=== PATIENT | male | born 1965 | race Caucasian/White ===

== ENCOUNTER 2018-02-13 14:39 | Outpatient (CLI) | payer OTHER ==
--- NOTE | 2018-02-13 15:33 | RAD ---
PA AND LATERAL OF THE CHEST: 02/13/18 INDICATION: History of cough. COMPARISON: None. FINDINGS: There is air space opacity in the left lower lobe with small left pleural effusion suspicious for pne umonia with a parapneumonic effusion. Mild interstitial edema suspected within the right lung base. H eart size is within normal limits. No acute osseous abnormality is evident. IMPRESSION: Findings suspicious for a left lower lobe pneumonia with a parapneumonic effusion. Recommend radiogra phic followup for resolution. POS: [facility]
== END 2018-02-13 14:40 | disposition home or self-care (01) ==
LOC: RAD-FRANK 14:39
PROVIDERS: ATTEND Nurse Practitioner Family
DX: R05 Cough (principal)
CPT/HCPCS: 71046

== ENCOUNTER 2018-02-14 12:40 | Inpatient (IN) | payer OTHER, SELFPAY ==
[2018-02-14] MEDS ORDERED: Ondansetron PF 4 MG/2 ML Vial ONE (13:29)
--- NOTE | 2018-02-14 13:45 | RAD ---
PORTABLE CHEST: HISTORY: Pneumonia. COMPARISON: 02/13/2018 FINDINGS: Increasing vascular and interstitial congestion today suggests edema. Hazy alveolar opacity in the l eft lung base suggests associated air space disease, either inflammatory or edema. The CP angles are blunted, consistent with small effusions. Increasing opacity in the medial right lung base today co uld represent atelectasis or focal infiltrate. IMPRESSION: Bibasilar infiltrates and small effusions. There is evidence of increasing vascular congestion today . POS: [facility]
[2018-02-14 13:50] LABS: #Lymphocytes 0.7 thou/uL (1.20-3.40); #Monocytes 0.7 thou/uL (0.11-0.59); %Basophils 0.1 % (0.0-1.0); %Eosinophils 0.1 % (0.0-10.0); %Lymphocytes 4.3 % (21.0-51.0); %Monocytes 4.5 % (0.0-10.0); %Neutrophils 90.9 % (42.0-75.0); Hemoglobin 13.8 g/dL (14.0-18.0); Mean Corpuscular Hemoglobin 29.4 pg (27.0-31.0); Mean Corpuscular Volume 91.7 fL (78.0-98.0); Platelet Count 344 thou/uL (130-400); RBC Distribution Width 11.8 % (11.5-14.5); Red Blood Cell (RBC) Count 4.69 mill/uL (4.70-6.10); White Blood Cell (WBC) Count 15.4 thou/uL (4.8-10.8)
--- NOTE | 2018-02-14 13:51 | CT ---
CT BRAIN WITHOUT CONTRAST: HISTORY: Left-sided weakness. FINDINGS: There is loss of delarosa-white matter differentiation in the right MCA territory predominantly in the in sula and indicative of an acute infarction. No hemorrhage, midline shift, or abnormal extraaxial flu id collections are seen. The ventricular size is appropriate and the basilar cisterns are patent. T he bony calvarium is intact. The visualized paranasal sinuses and mastoid air cells are well aerated . IMPRESSION: Acute right middle cerebral artery infarction. Discussed over the telephone with ER physician, Dr. Rocky Grullon, at 1:23 p.m. CODE VERO POS: [facility]
[2018-02-14 13:55] LABS: PTT 23.4 SEC (22.9-36.1); Prothrombin Time 15.4 SEC (12.0-14.7)
[2018-02-14 13:57] LABS: INR-International Normal Ratio 1.2
[2018-02-14 14:00] LABS: ALT (SGPT) 32 U/L (8-55); AST (SGOT) 22 U/L (5-34); Albumin 3.8 g/dL (3.5-5.0); Alkaline Phosphatase 85 U/L (40-150); Anion Gap 23 mmol/L (10-20); BUN (Urea Nitrogen) 20 mg/dL (8.4-25.7); Bilirubin, Total 0.8 mg/dL (0.2-1.2); Calc. Creatinine Clearance 0 mL/min (70-130); Calcium 8.5 mg/dL (7.8-10.44); Carbon Dioxide 15 mmol/L (22-29); Chloride 95 mmol/L (98-107); Estimated GFR-MDRD 68; Globulin 2.3 g/dL (2.4-3.5); Glucose 390 mg/dL (70-105); Potassium 4.6 mmol/L (3.5-5.1); Protein, Total 6.1 g/dL (6.0-8.3); Sodium 128 mmol/L (136-145)
[2018-02-14] MEDS ORDERED: ISOVUE-370 76%-LOCM 1 ML ONE (14:01)
--- NOTE | 2018-02-14 14:15 | CT ---
CTA HEAD WITH CONTRAST: Multiple axial tomograms were obtained through the head with IV enhancement following a cerebral yaima o protocol with multiplanar reconstruction and 3D postprocessing. INDICATION: Stroke protocol with left-sided weakness. FINDINGS: The intracranial internal carotid arteries are patent. There is atherosclerotic change seen in the r ight cavernous portion of the right ICA with mild luminal narrowing at this location. Carotid terminus is patent. The anterior cerebral arteries and M1 segment both middle cerebral arter ies are patent and open with no focal stenosis or occlusion. There does appear to be occlusion of an insular branch of the right M2 middle cerebral artery. This would correspond to the area of right insular infarct noted on CT. The basilar artery is patent. The posterior cerebrals appear symmetric. IMPRESSION: Evidence of occlusion of an insular branch of a right M2 cerebral artery. CTA NECK WITH CONTRAST: Multiple axial tomograms were obtained through the neck with IV enhancement. Multiplanar reconstruct ion and 3D postprocessing. INDICATION: Stroke protocol. There is no evidence of stenosis at the origin of the arch vessels. Both common carotid arteries are patent with no stenosis. Carotid bulbs are patent with mild atherosclerotic change. visualized ext racranial internal carotid arteries are unremarkable. Vertebral arteries are patent. A review of soft tissues reveals moderate-sized bilateral pleural effusions. No mass or adenopathy i s seen in the neck. Findings were related to Dr. Grullon. CODE CR POS: [facility]
[2018-02-14] MEDS ORDERED: cefTRIAXone\\ROCEPHIN 2 GM VIAL ONE (14:24)
[2018-02-14] MEDS ORDERED: Azithromycin 500 MG VIAL ONE ×2 (14:24→15:15)
[2018-02-14] MEDS ORDERED: Acetaminophen 325 MG TAB PO PRN (15:25)
[2018-02-14] MEDS ORDERED: Lorazepam 2 MG/ML VIAL ONE (15:34)
[2018-02-14] MEDS ORDERED: ALPRAZolam 0.5 MG TAB ONE (15:55)
[2018-02-14] MEDS ORDERED: Propofol 1,000 MG/100 ML VIAL IV ONE (15:58)
[2018-02-14] MEDS ORDERED: Succinylcholine Chloride 20 MG/ML 10 ml SYRINGE FS ONE (15:58)
[2018-02-14 16:11] LABS: Troponin I 4.351 ng/mL (< 0.028)
[2018-02-14] MEDS ORDERED: Labetalol HCl 100 MG/20 ML VIAL SLOW IVP PRN (16:11)
[2018-02-14] MEDS ORDERED: Fentanyl 100 MCG/2 ML VIAL ONE ×4 (16:24→19:08)
--- NOTE | 2018-02-14 16:42 | RAD ---
SUPINE PORTABLE CHEST: 02/14/18 INDICATIONS: Post intubation. ET tube is in place with tip above the aung. FINDINGS/IMPRESSION: There are bilateral perihilar infiltrates suggesting bilateral pulmonary perihilar edema. These infil trates have increased when compared to film earlier today. POS: [facility]
[2018-02-14 17:46] LABS: Bilirubin Negative (Negative); Blood, Urine Negative (Negative); Clarity CLEAR (Clear); Glucose, Urine (Dipstick) >=1000 mg/dL (Negative); Leukocyte Negative (Negative); Nitrite Negative (Negative); Protein, Urine (Dipstick) Trace mg/dL (Neg-Trace)
[2018-02-14 17:50] LABS: Specific Gravity, Urine 1.044 (1.002-1.036)
[2018-02-14] MEDS ORDERED: Norepinephrine 8 MG/0.9% NS 250 ML ONE (18:05)
--- NOTE | 2018-02-14 18:50 | CON ---
DATE OF CONSULTATION: 02/14/2018 CARDIOLOGY CONSULTATION REASON FOR CONSULTATION: Heart failure and elevated troponin. HISTORY OF PRESENT ILLNESS: Mr. Ingram is a 52-year-old white gentleman who comes to the hospital for weakness in the left side of his body. He was actually diagnosed with pneumonia yesterday, started on antibiotics and a dose of prednisone was given. This was at his primary care doctor's office seco ndary to his weakness. Today he came in and he was having also slurred speech. He was diagnosed wit h an acute stroke and received a full dose TPA for thrombolysis of his acute CVA. Eventually became hypoxic and went into heart failure and had to be intubated for airway management. Cardiology is roberto roque consulted for this as well as a troponin of 4. PAST MEDICAL HISTORY: Type 2 diabetes. PAST SURGICAL HISTORY: 1. Rotator cuff repair. 2. Appendectomy. SOCIAL HISTORY: Former smoker. This is all from chart review. No alcohol or drugs. OUTPATIENT MEDICATIONS: 1. Amoxicillin. 2. Prednisone 50 a day given yesterday for the first time. ALLERGIES: No known drug allergies. FAMILY HISTORY: Unobtainable. REVIEW OF SYSTEMS: Unobtainable. PHYSICAL EXAMINATION: GENERAL: The patient is intubated. VITAL SIGNS: Temperature 101.3, pulse 150, respiratory rate 26, satting 73% on 100% FIO2, blood pres sure 97/78. GENERAL: Intubated, off sedation now. HEENT: Normocephalic, atraumatic. NECK: Supple. LUNGS: Have coarse breath sounds bilateral anteriorly and reduced breath sounds posteriorly. CARDIOVASCULAR: S1, S2, no S3 or S4. Distant heart sounds. No murmurs or rubs. ABDOMEN: Soft. Positive bowel sounds. EXTREMITIES: 2+ edema. SKIN: Cool and dry. LABORATORY DATA: CBC with white count of 15, hemoglobin of 13.8, hematocrit 43 and platelet count 34 4. Coags were reviewed. Chemistries were reviewed. Lactic acid was 5.3. Troponin initially at 4.3 with BNP of 509. Sodium was 128. UA with 100 glucose, 40 ketones, otherwise unremarkable. IMAGING DATA: EKG was reviewed, no ischemic changes. Echocardiogram was reviewed. He has a reduced EF of about 20%-25%. Left ventricle only is hyperkine tic at the basal segments consistent with either Takotsubo cardiomyopathy or large anterior PA. Ther e is a small pericardial effusion and there is ascites. ASSESSMENT: 1. Acute on chronic systolic heart failure. 2. Cardiogenic shock. 3. Acute cerebrovascular accident status post full dose TPA. 4. High possibility of this being a Takotsubo cardiomyopathy from his acute CVA and acute cardiogeni c shock from this. 5. Acute hypoxic respiratory insufficiency. 6. Diabetes. PLAN: 1. Supportive care for now. 2. He just had a code blue, probably from hypoxia as his oxygen levels were difficult to maintain se condary to likely amount of pulmonary edema there is. 3. Would recommend pressure support. Right now he only responded to epinephrine, so we will start o n epinephrine drip on top of the Levophed. 4. Patient is severely ill and would not be unexpected. 5. One possibility would be putting him on ecchymosis support; however, we do not have this availabi lity in the hospital. To do this, we would have to transfer him to a different facility which at thi s time he is too unstable to do so. Also, cannulating his arteries after TPA is also unlikely to be possible. Over 60 minutes of critical care were delivered at bedside.
--- NOTE | 2018-02-14 19:07 | PDOC.PULCN ---
<Zach Barnett - Last Filed: 02/14/18 19:04> Pulmonology Consult: HPI - Date of Consult Date: 02/14/18 Time: 16:45 - Consult Details Reason for Consult: CVA s/p full dose TPA Requesting Physician: Levi Palomares - History of Present Illness HPI: LUIS ALMANZAR is a 52 year-old M with a PMH of Type 2 DM who presented to the ED with complaint of left sided weakness and slurred speech. He was actually seen in outpatient clinic yesterday, diagnosed with pneumonia, and started on amoxicillin and received a dose of steroids. Since that time, his conditioned worsened and today he developed weakness and fell. He was diagnosed with acute right middle cerebral artery infarction by brain CT and given full dose TPA in the ED. He subsequently became hypoxic in the ED, developing heart failure and flash pulmonary edema and was intubated for agitation and airway management. Labs were significant for a lactic acid of 5.3, troponin of 4.351 and BNP of 509. Pulmonology Consult: ROS - Review of Systems ROS unobtainable: due to endotracheal tube Pulmonology Consult: PMH Source: family Past Medical History: Type 2 Diabetes Mellitus - Social History Smoking Status: Former smoker (quit 10 years ago) Alcohol Use: none Drug Use History: none Pulmonology Consult: Meds - Medications MAR Reviewed: Yes Medications: Current Medications Acetaminophen (Tylenol) 650 mg PO Q4H PRN PRN Reason: Headache/Fever/Mild Pain (1-3) Azithromycin 500 mg/ Sodium (Chloride) 250 mls @ 250 mls/hr IVPB 1600 ERICH Ceftriaxone Sodium 1 gm/ (Sodium Chloride) 100 mls @ 200 mls/hr IVPB 1500 ERICH Nicardipine HCl 25 mg/ Sodium (Chloride) 260 mls @ 0 mls/hr IVPB INF PRN; Protocol PRN Reason: SBP > 180 or DBP > 105 Epinephrine 4 mg/ Dextrose/ (Water) 254 mls @ 0 mls/hr IV INF ERICH; Protocol Norepinephrine Bitartrate (Levophed) 250 mls @ 0 mls/hr IVPB INF PRN; Protocol PRN Reason: Blood Pressure Labetalol HCl (Normodyne) 10 mg SLOW IVP Q2H PRN PRN Reason: SBP > 180 or DBP > 105 Miscellaneous Information (Communication Order-Pharmacy) 1 each FS NOW ERICH Stop: 02/15/18 16:12 - Allergies Allergies/Adverse Reactions: Allergies Allergy/AdvReac Type Severity Reaction Status Date / Time No Known Allergies Allergy Verified 02/14/18 19:50 Pulmonology Consult: PE - Physical Exam Deviation from normal: intubated and sedated on ventilator HEENT: moist MMs, sclera anicteric Neck: supple Deviation from normal: JVD to angle of jaw Cardiovascular: no significant murmur Deviation from normal: tachycardic Respiratory: rales (mild rales heard bilaterally) Gastrointestinal: soft, no distention, positive bowel sounds Musculoskeletal: no edema, pulses present Deviation from normal: sedated Skin: no rash, normal turgor Pulmonology Consult: Results - Labs Result Diagrams: 02/14/18 13:35 02/14/18 13:35 - EKG Data Rate: tachycardia (EKG showed sinus tachycardia with [address] depressions in V5 and V6, no Q waves, no ST elevations) Pulmonology Consult: A/P - Problem (1) Acute respiratory failure with hypoxia Code(s): J96.01 - ACUTE RESPIRATORY FAILURE WITH HYPOXIA Status: Acute (2) Right middle cerebral artery stroke Code(s): I63.511 - CEREB INFRC D/T UNSP OCCLS OR STENOS OF RIGHT MID CEREB ART Status: Acute (3) Acute on chronic systolic (congestive) heart failure Code(s): I50.23 - ACUTE ON CHRONIC SYSTOLIC (CONGESTIVE) HEART FAILURE Status : Acute (4) Flash pulmonary edema Code(s): J81.0 - ACUTE PULMONARY EDEMA Status: Acute (5) Cardiogenic shock Code(s): R57.0 - CARDIOGENIC SHOCK Status: Acute (6) Type 2 diabetes mellitus Status: Chronic - Time Time: 50% of the time was spent in coordination of care (as documented) at patient's floor/unit and/or counseling patient. Time with Patient: greater than 70 minutes - Plan Plan: At this time, we will continue supportive care on mechanical ventilation and pressors. Patient is s/p full dose TPA for thrombolysis of acute CVA. Will refrain from IVFs at this time due to acute systolic heart failure, Echo is pending. Bedside US done in ED showed hypokinesis of lateral and inferior benavides of left ventricle as well as bilateral pulmonary edema and dilated hepatic veins. Patient has recent diagnosis of pneumonia with elevated lactate , will continue broad spectrum antibiotics, blood cultures were drawn in the ED. <Jacob Huitron M - Last Filed: 02/19/18 11:28> Pulmonology Consult: HPI - History of Present Illness HPI: LUIS ALMANZAR is a 52 year-old M Pulmonology Consult: Results - Labs Result Diagrams: 02/17/18 05:13 02/17/18 18:46 - ABG Interpretation ABG Results: ABG pH 7.28 (7.35-7.45) L 02/17/18 19:15 ABG pCO2 23.7 mmHg (35.0-45.0) L* 02/17/18 19:15 ABG O2 Sat Calc/Jania 90.8 % (94.0-98.0) L 02/17/18 19:15 ABG Base Excess -13.9 mEq/L (-2.0 to +3.0) L 02/17/18 19:15 Pulmonology Consult: A/P - Time Time: 50% of the time was spent in coordination of care (as documented) at patient's floor/unit and/or counseling patient. Attending Addendum - Attending Addendum Date/Time: 02/19/18 1125 I personally evaluated the patient and discussed the management with the resident. I agree with the History, Examination, Assessment and Plan documented above with any addition or exceptions noted below. Acute hypoxic respiratory failure. Acute systolic heart failure, suspect stress induced cardiomyopathy. NSTEMI CVA s/p tPA PEA arrest s/p 4 minutes of CPR Critical care time: 120 minutes.
[2018-02-14] MEDS ORDERED: Propofol BOLUS 1,000 MG/100 ML VIAL IV PRN (19:08)
[2018-02-14] MEDS ORDERED: Fentanyl BOLUS 250 ML IVPB PRN (19:08)
[2018-02-14] MEDS ORDERED: Fentanyl CADD 250 ML IVPB SCH (19:08)
[2018-02-14] MEDS ORDERED: Morphine 2 MG/ML SYRINGE SLOW IVP PRN (19:08)
[2018-02-14] MEDS ORDERED: DISCONTINUE PREVIOUS NARCOTIC PAIN MEDICATIONS AND BENZODIAZEPINES FS SCH (19:08)
[2018-02-14] MEDS ORDERED: Lorazepam 2 MG/ML VIAL SLOW IVP PRN (19:08)
--- NOTE | 2018-02-14 19:21 | HP ---
CHIEF COMPLAINT: Shortness of breath. HISTORY OF PRESENT ILLNESS: This patient is a 52-year-old male who has a history of diabetes mellitus who presented to the emergency department with shortness of breath. Patient reports that he started developing shortness of breath and cough 3 to 4 days ago. This progressed even though it was nonproductive and he presented to his PCP yesterday. He was diagnosed with pneumonia and treated with amoxicillin and prednisone. The patient could not sleep overnight due to his shortness of breath. He had to essentially be leaning forward, could not lie down because the shortness of breath. This morning, he was having cramping in his legs, he attempted to stand up and fell. This happened a second time and subsequently had an ambulance to bring him to the emergency department. He has really primarily only one concern with his cough and shortness of breath and reported some weakness on his left side, basically as an afterthought. The patient denied any other neurologic symptoms associated with this. The patient had a CT scan performed which did reveal a right M2 branch MCA infarct and was subsequently given TPA. Chest x-ray has confirmed what appears to be a pneumonia and some possible pulmonary edema as well. PAST MEDICAL HISTORY: Only notable for diabetes mellitus type 2. PAST SURGICAL HISTORY: Appendectomy, left rotator cuff repair. FAMILY HISTORY: Mother had cancer and dementia. SOCIAL HISTORY: Patient quit smoking and drinking 26 years ago. He is . He is FULL CODE and his would be his surrogate decision maker. REVIEW OF SYSTEMS: Negative except for those things mentioned in history of present illness except for the fact the patient has reported nausea for the past few days as well. PHYSICAL EXAMINATION: VITAL SIGNS: BP 113/80, pulse 139, respirations 34, O2 sat 93% on 3 liters nasal cannula. GENERAL: Appears to be in significant respiratory distress. He is breathing rapidly. He is intolerant to the nebulizer mask being on his face and actively resist even with attempts to hold it close to his face. He is sitting forward primarily holding his head up. He only speaks in very short sentences and prefers his family to answer questions for him. He is appropriate; however, when he does converse. HEENT: PERRL. No OP lesions. NECK: Supple and symmetric. HEART: Very tachycardic without murmurs, gallops or rubs. LUNGS: Diminished. He has rales primarily on the right base, but scattered throughout. ABDOMEN: Soft, nontender, nondistended with positive bowel sounds. No masses, no organomegaly. EXTREMITIES: Warm and dry with no edema. NEUROLOGIC: Patient appears to be cognitively intact. He has normal cranial nerve function. He does have some significant weakness in the left upper extremity, both proximally and distally and fairly-normal strength in both lower extremities at this point which apparently is something of an improvement following the TPA. LABORATORY DATA: White count 15.4, hemoglobin 13.8, platelets 344 with 90% neutrophils. Coags: PT 15.4, INR 1.2. Sodium 128, potassium 4.6, chloride 95 , CO2 is 15, anion gap is 23, BUN is 20, creatinine is 1.13, glucose is 390, lactic acid is 5.3. IMAGING: EKG shows sinus tachycardia at 135 with some possible lateral ischemia. CT scan of the brain revealed acute right middle cerebral artery infarction. CTA showed a clot in the left M2 branch of the right MCA. Chest x- ray showed bilateral infiltrates with small effusion and evidence of vascular congestion. HOSPITAL COURSE: The patient appeared to have some significant respiratory distress. I talked to Dr. Huitron immediately to let him know the patient was having some issues that were going to require his attention and patient subsequently continued to decline and worsening respiratory distress became somewhat cyanotic, ultimately recalled the emergency physician, Dr. Bender to come back in and we got the patient intubated. His subsequent chest x-ray showed worsening diffuse pulmonary edema. His labs that were added on included troponin which was apparently elevated over [address] Huitron after his arrival. At this point, the concern is that the patient may in fact have an undiagnosed cardiomyopathy leading to heart failure, possibly a cardiac thrombus with embolic stroke. Dr. Schmitz has called Dr. Razo and we will continue to pursue that. IMPRESSION AND PLAN: 1. Acute respiratory failure requiring intubation and mechanical ventilation. His repeat chest x-ray after intubation shows substantial pulmonary edema consistent with congestive heart failure. Dr. Huitron was consulted managing events. 2. Possible pneumonia. It is unclear that is actually the case at this point we will continue with Rocephin and azithromycin for now. 3. Cardiac: The patient apparently has elevated troponin, numbers are not in the system yet, but by phone report, it was close to 5. Concerning for possibility of a cardiomyopathy, getting a stat echocardiogram, consulting Dr. Razo. 4. Acute cerebrovascular accident, right middle cerebral artery distribution with persistent left upper extremity weakness following TPA. We will pursue the post-TPA orders. Avoid any needle sticks for the time being. Consult Neurology and the stroke team. 5. Diabetes mellitus, poorly controlled, avoiding Accu-Cheks and punctures at this time, may need to consider more aggressive intervention once he is capable. 6. Pseudohyponatremia. 7. Lactic acidosis should improve with mechanical ventilation. Critical Care Johnson 85 minutes. MTDD
[2018-02-14] MEDS: Norepinephrine 8 MG/250 ML BAG IVPB PRN (19:32)
[2018-02-14] MEDS: fentaNYL Citrate/PF 2,000 MCG in Sodium Chloride 0.9% 60 ML IV SCH (19:33)
[2018-02-14 19:51] VITALS: BMI 29.1
[2018-02-14] MEDS: [UNRECOGNIZED DRUG - REMARK] FS SCH (20:06)
[2018-02-14] MEDS: Propofol 1,000 MG/100 ML VIAL IV PRN (20:19)
[2018-02-14 21:31] LABS: Troponin I 4.415 ng/mL (< 0.028)
[2018-02-15] MEDS: Norepinephrine 8 MG/250 ML BAG IVPB PRN ×2 (00:25→22:42)
[2018-02-15] MEDS: EPINEPHrine 4 MG in Dextrose 5% in Water 250 ML IV SCH ×3 (00:39→23:27)
[2018-02-15 04:27] LABS: #Lymphocytes 0.5 thou/uL (1.20-3.40); #Monocytes 1.7 thou/uL (0.11-0.59); #Neutrophils 15.9 thou/uL (1.40-6.50); %Eosinophils 0.2 % (0.0-10.0); %Lymphocytes 2.7 % (21.0-51.0); %Monocytes 9.2 % (0.0-10.0); Hemoglobin 14.1 g/dL (14.0-18.0); Mean Corpuscular Hemoglobin 29.9 pg (27.0-31.0); Mean Corpuscular Volume 93.3 fL (78.0-98.0); Mean Platelet Volume 8.3 fL (7.4-10.4); Platelet Count 379 thou/uL (130-400); RBC Distribution Width 12.2 % (11.5-14.5); Red Blood Cell (RBC) Count 4.74 mill/uL (4.70-6.10); White Blood Cell (WBC) Count 18.1 thou/uL (4.8-10.8)
[2018-02-15 04:39] LABS: Phosphorus 5.9 mg/dL (2.3-4.7)
[2018-02-15 04:46] LABS: ALT (SGPT) 1561 U/L (8-55); AST (SGOT) 1507 U/L (5-34); Albumin 3.7 g/dL (3.5-5.0); Alkaline Phosphatase 87 U/L (40-150); Anion Gap 26 mmol/L (10-20); BUN (Urea Nitrogen) 36 mg/dL (8.4-25.7); Bilirubin, Total 0.9 mg/dL (0.2-1.2); Calc. Creatinine Clearance 58 mL/min (70-130); Calcium 8.6 mg/dL (7.8-10.44); Carbon Dioxide 17 mmol/L (22-29); Cardiac Risk 4.7 (Less than 4.5); Chloride 96 mmol/L (98-107); Cholesterol 149 mg/dl (< 200 Desired); Estimated GFR-MDRD 34; Globulin 2.6 g/dL (2.4-3.5); Glucose 744 mg/dL (70-105); HDL Cholesterol 32 mg/dL (>60 Neg Risk); LDL Cholesterol, Calculated 88 mg/dL; Magnesium 2.5 mg/dL (1.6-2.6); Potassium 4.5 mmol/L (3.5-5.1); Protein, Total 6.3 g/dL (6.0-8.3); Sodium 134 mmol/L (136-145); Triglycerides 146 mg/dL (Less than 150)
[2018-02-15 05:46] LABS: Troponin I 26.291 ng/mL (< 0.028)
[2018-02-15 08:42] LABS: Glucose 644 mg/dL (70-105)
[2018-02-15] MEDS ORDERED: Furosemide 20 MG/2 ML VIAL SLOW IVP SCH (09:15)
--- NOTE | 2018-02-15 09:25 | PDOC.CTH ---
Cardiology Progress Note - Subjective He continues to need both epi and nor epi to maintain his BP. His sats are better and currently at 60% FiO2. he is 99%. Peep still at 10. He wakes up from sedation and moves, opens his eyes. - Objective Vital Signs Temp Pulse Resp Pulse Ox 02/15/18 08:00 99.7 F H 15 02/15/18 07:08 136 H 02/15/18 06:00 19 02/15/18 04:00 98.9 F 20 02/15/18 02:00 19 02/15/18 01:00 100.1 F H 02/15/18 00:00 18 02/14/18 23:26 148 H 17 98 02/14/18 22:00 20 Weight 214 lb 11.684 oz 02/14/18 02/15/18 02/16/18 06:59 06:59 06:59 Intake Total 957.0 Output Total 1110 500 Balance -153.0 -500 - Physical Examination General/Neuro: other: (Sedated , intubated. ) Neck: no JVD present Lungs: other: (Coarse anteriorly. ) Heart: RRR, other: (Tachycardic) Abdomen: NT/ND Extremities: + edema B (2+) - Telemetry Telemetry Rhythm: S tach - Labs Result Diagrams: 02/15/18 04:12 02/15/18 07:55 Troponin/CKMB Troponin I 26.291 ng/mL (< 0.028) H* 02/15/18 04:12 - Assessment/Plan 1. Cardiogenic shock. 2. Acute systolic heart failure. 3. Acute CVA s/p TPA. 4. Acute hypoxic respiratory insufficiency. 5. Hyperglycemia 6. Severe dilated CM, possibly takotsubo 7. NSTEMI, troponin up to 26 after code blue yesterday. 8. S/P PEA arrest. 9. Acute on chronic renal insufficiency. 10. Hyperglycemia. PLAN: - Continue supportive care. - Able to oxygenate better, PEA arrest yesterday was likely due to hypoxia from severe pulmonary edema. - He has been diuresing on his own and is putting out about 100 ml an hour. Clear urine. he is -1500 ml down today. - No plan for [facility] for now. - He is severely ill and would not be unexpected. - Will follow. - 30 min critical care time.
--- NOTE | 2018-02-15 09:33 | PRG ---
DATE OF SERVICE: 02/15/2018 SERVICE: Pulmonary Medicine INTERVAL HISTORY: The patient had a rough night last night. He ended up having a code event. He had chest compressions for 5 minutes. Ultimately, we had no choice but to place a central line, status post t-PA. We put one in the right femoral vein. This was an uncomplicated procedure. Ultimately, he was initiated on epinephrine, and Levophed drips. Overnight, he stabilized a little bit. Oxygen requirements have improved a little bit. He cannot provide much in the way of history. That being said, he is following all commands. He is putting thumbs up on the right hand, moving the left hand to command, and moving bilateral lower extremities comfortably. He nods yes and no appropriately. Otherwise, there has been no interval change to his condition. PHYSICAL EXAMINATION: VITAL SIGNS: Afebrile with a T-max of 100.1, pulse 135, blood pressure 120/80, respirations 13, saturation 96% on 50% FiO2 and a PEEP of 10. GENERAL: The patient is awake and alert on mechanical ventilation requiring some sedation. HEENT: Normocephalic, atraumatic. Sclerae are white, conjunctivae pink. Oral mucosa is moist without lesions. LUNGS: Excellent air entry. There is no prolonged expiratory phase. Extensive crackles are present. There is decreased air entry in the bibasilar region. No wheezing are present. Rhonchi are there, but clear with cough. HEART: Tachycardic. Regular. ABDOMEN: Soft, nontender, nondistended. Bowel sounds are positive. MUSCULOSKELETAL: No cyanosis or clubbing. No pitting in the bilateral lower extremities. NEUROLOGIC: The left upper extremity demonstrates a little bit of clumsiness and weakness. Outside of that he is completely nonfocal. LABORATORY DATA: WBC 18.1, hemoglobin 14.1, platelets 379,000. Neutrophil count is 88%. INR 1.2. Creatinine 2.04 and significantly up trending, glucose 644. BUN 36, anion gap 26 and up trending, bicarbonate 17, chloride 96, sodium 134. Troponin is up trending to 26. AST and ALT are elevated. BNP 509. Otherwise, liver function studies are unremarkable. Urinalysis is positive for ketones and glycosuria. Otherwise, it does not appear that there is any infectious changes. Influenza A and B is unremarkable. Blood culture x1 is negative. IMAGING: Echocardiogram demonstrates a very depressed ejection fraction. He has got a dilated left ventricle that takes on the appearance of a Takotsubo. He has moderate to severe mitral regurgitation present. ASSESSMENT: 1. Cerebrovascular accident, status post t-PA. 2. Acute systolic heart failure secondary to stress-induced cardiomyopathy ( Takotsubo). 3. Mitral regurgitation, moderate to severe. 4. Acute hypoxic respiratory failure. 5. Bilateral pleural effusions. 6. Non-ST elevation myocardial infarction. 7. Community-acquired pneumonia, unlikely. 8. Shock liver. DISCUSSION AND PLAN: We will minimize fluids moving forward. I will switch him over to D5 water with 3 amps of bicarbonate at 50 mL per hour. We will check a beta hydroxybutyric acid and a lactate to see where his increasing acidosis is coming from. Mr. Ingram remains in critical condition. He has multisystem organ dysfunction associated with acute onset heart failure following a stroke. He cannot tolerate breaks in his circuit from the PEEP or minimal interruption in pressors. He is clearly not out of the patricia yet. I have made some adjustments to mechanical ventilation in order to maximize comfort. If he fails to make significant headway or continues getting worse, we may need to consider ECMO. Critical care time: 30 minutes. MTDD
[2018-02-15] MEDS: Sodium Bicarbonate 150 MEQ in Dextrose 5% in Water 1,000 ML IV SCH (10:31)
[2018-02-15 10:58] LABS: Glucose 532 mg/dL (70-105)
[2018-02-15] MEDS: fentaNYL Citrate/PF 2,000 MCG in Sodium Chloride 0.9% 60 ML IV SCH (11:23)
[2018-02-15] MEDS: Propofol 1,000 MG/100 ML VIAL IV PRN (11:37)
[2018-02-15 13:20] LABS: Glucose 461 mg/dL (70-105)
[2018-02-15 13:22] LABS: Lactic Acid 3.6 mmol/L (0.5-2.2)
--- NOTE | 2018-02-15 13:56 | PDOC.PN ---
- Subjective Encounter Start Date: 02/15/18 Encounter Start Time: 08:00 Patient intubated and non-verbal, but awake and communicates. He indicates he feels thirsty. - Objective Resuscitation Status: Resuscitation Status FULL:Full Resuscitation Vital Signs & Weight: Vital Signs (12 hours) Temp Pulse Resp 02/15/18 12:58 138 H 02/15/18 12:00 15 02/15/18 10:34 135 H 02/15/18 10:00 15 02/15/18 08:00 99.7 F H 15 02/15/18 07:08 136 H 02/15/18 06:00 19 02/15/18 04:00 98.9 F 20 02/15/18 02:00 19 Weight Admit Weight 214 lb 11.6 oz Weight 214 lb 11.6 oz Most Recent Monitor Data Heart Rate from ECG 137 NIBP 112/82 NIBP BP-Mean 92 Respiration from ECG 16 SpO2 100 I&O: 02/14/18 02/15/18 02/16/18 06:59 06:59 06:59 Intake Total 957.0 Output Total 1110 975 Balance -153.0 -975 Result Diagrams: 02/15/18 04:12 02/15/18 12:46 Additional Labs: Accuchecks 02/15/18 02/15/18 12:48 07:37 POC Glucose 450 H Greater than 550 H* Phys Exam - Physical Examination Constitutional: NAD Intubted, but awake. No distress. Respiratory: no wheezing [place] scattered ronchi anteriorly. Cardiovascular: RRR, no significant murmur Tachy Gastrointestinal: soft, non-tender, no distention Musculoskeletal: no edema Normal strength right. Left sided weakness, but able to squeeze with LUE LLE close to normal strength. Psychiatric: normal affect Dx/Plan (1) Cardiogenic shock Code(s): R57.0 - CARDIOGENIC SHOCK Status: Acute Comment: Acute CM with CHF resulted in hypoxia and PEA arrest. Now on Epi and NorEpi. (2) Cardiomyopathy Code(s): I42.9 - CARDIOMYOPATHY, UNSPECIFIED Status: Acute Comment: Appears to be an acute CM. Etiology unclear, but possibly Takosubo. Cardiology following. No plan for cath until more stable. (3) Acute systolic (congestive) heart failure Code(s): I50.21 - ACUTE SYSTOLIC (CONGESTIVE) HEART FAILURE Status: Acute Comment: Acute CM with several days of SOB and ultimately flash pulmonary edema. Diuresing spontaneously now. (4) Acute respiratory failure with hypoxia Code(s): J96.01 - ACUTE RESPIRATORY FAILURE WITH HYPOXIA Status: Acute Comment: Initial thought of pneumonia has been ruled out. Now appears to be fully related to the pulmonary edema and CHF. On vent. Still having difficulty maintaining oxygenation. (5) Right middle cerebral artery stroke Code(s): I63.511 - CEREB INFRC D/T UNSP OCCLS OR STENOS OF RIGHT MID CEREB ART Status: Acute Comment: S/P tPA. Tolerated well. Residual LUE weakness and mild LLE weakness. Tried to avoid needle sticks/accuchecks, but that was ultimately abandoned given his critical status. Stroke team consulted, but too critically ill for any therapy. (6) Type 2 diabetes mellitus Status: Chronic Comment: Severe hyperglycemia. Started on insulin gtt this morning. Did not receive initial treatment due to the tPA and avoidance of sticks. (7) NSTEMI (non-ST elevated myocardial infarction) Code(s): I21.4 - NON-ST ELEVATION (NSTEMI) MYOCARDIAL INFARCTION Status: Acute Comment: Trops high on presentation with some mild lateral ST depression / TWI. Much higher after PEA arreast. Cards following. No plans for cath at this time. (8) Acute renal failure Status: Acute Comment: Numbers are worse, but he does have fairly good urine output for now. Continue to monitor. - Plan * Multiple organ system failure. Prognosis is still poor, but the patient's relative youth and generally good prior health are in his favor.
[2018-02-15] MEDS: Furosemide 20 MG/2 ML VIAL SLOW IVP SCH (14:07)
[2018-02-15 14:51] VITALS: BP 115/78
[2018-02-15] MEDS: cefTRIAXone\\ROCEPHIN 1 GM in Sodium Chloride 0.9% 100 ML IVPB SCH (15:10)
[2018-02-15] MEDS: Azithromycin 500 MG in Sodium Chloride 0.9% 250 ML 250 ML IVPB SCH (15:33)
[2018-02-15] MEDS: Amiodarone HCl 450 MG, Admixture Fee 1 EACH in Dextrose 5% in Water 250 ML IVPB SCH ×2 (15:42→22:42)
[2018-02-15] MEDS: [UNRECOGNIZED DRUG - REMARK] FS SCH (16:03)
--- NOTE | 2018-02-15 17:05 | EKG ---
Test Reason : Blood Pressure : / mmHG Vent. Rate : 135 BPM Atrial Rate : 012 BPM P-R Int : 000 ms QRS Dur : 116 ms QT Int : 362 ms P-R-T Axes : 000 097 114 degrees QTc Int : 543 ms Supraventricular tachycardia Rightward axis Pulmonary disease pattern Nonspecific ST and T wave abnormality Abnormal ECG Confirmed by RENETTA VELÁSQUEZ ([id number]), film editor JONATHAN VIDALES ([id number]) on 02/15/2018 5:04:33 PM Referred By: Confirmed By:RENETTA VELÁSQUEZ
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
[2018-02-16] MEDS: fentaNYL Citrate/PF 2,000 MCG in Sodium Chloride 0.9% 60 ML IV SCH ×2 (04:17→20:16)
[2018-02-16 05:45] LABS: Magnesium 2.3 mg/dL (1.6-2.6)
[2018-02-16] MEDS: Furosemide 20 MG/2 ML VIAL SLOW IVP SCH ×2 (05:50→14:08)
[2018-02-16 06:26] LABS: Band 9 % (5-11); Hemoglobin 13.9 g/dL (14.0-18.0); Lymphocytes 7 % (21-51); MDiff Complete? YES; Mean Corpuscular HGB CONC 32.5 g/dL (32.0-36.0); Mean Corpuscular Hemoglobin 29.2 pg (27.0-31.0); Mean Corpuscular Volume 89.8 fL (78.0-98.0); Mean Platelet Volume 8.2 fL (7.4-10.4); Monocytes 5 % (0-10); Neutrophil 79 % (42-75); PLT Morphology Comment Appears Adequate; Platelet Count 199 thou/uL (130-400); RBC Distribution Width 12.3 % (11.5-14.5); RBC Morphology Normal; Red Blood Cell (RBC) Count 4.75 mill/uL (4.70-6.10); White Blood Cell (WBC) Count 22.5 thou/uL (4.8-10.8)
[2018-02-16] MEDS: Sodium Bicarbonate 150 MEQ in Dextrose 5% in Water 1,000 ML IV SCH (09:10)
[2018-02-16] MEDS: Propofol 1,000 MG/100 ML VIAL IV PRN (09:10)
[2018-02-16 09:11] LABS: Anion Gap 18 mmol/L (10-20); BUN (Urea Nitrogen) 28 mg/dL (8.4-25.7); Calc. Creatinine Clearance 138 mL/min (70-130); Calcium 8.3 mg/dL (7.8-10.44); Carbon Dioxide 24 mmol/L (22-29); Chloride 103 mmol/L (98-107); Estimated GFR-MDRD Greater than 90; Glucose 151 mg/dL (70-105); Potassium 3.2 mmol/L (3.5-5.1); Sodium 142 mmol/L (136-145)
--- NOTE | 2018-02-16 09:17 | RAD ---
RADIOGRAPH CHEST 1 VIEW: Date: 02/16/18 Time: 0748 HOURS HISTORY: 52-year-old male with respiratory failure. COMPARISON: 02/14/18 at 1613 hours. FINDINGS: Endotracheal tube and NG tube remain. Distal tip of endotracheal tube is in satisfactory position in mid thoracic trachea. No cardiomegaly. Previously demonstrated diffuse bilateral air space densities have improved. Bilateral posteriorly layering pleural effusions remain, right greater than left. This is a supine image, which would be insensitive for pneumothorax detection. IMPRESSION: 1. Interval improvement in the bilateral diffuse pulmonary air space densities which probably repres ent pulmonary edema, although severe bilateral pneumonia is not excluded. 2. Bilateral pleural effusions remain. 3. No cardiomegaly. 4. Endotracheal tube in satisfactory position. JUICE [] POS: [facility]
--- NOTE | 2018-02-16 09:53 | PRG ---
DATE OF SERVICE: 02/16/2018 SUBJECTIVE: Mr. Ingram remains on the ventilator with high dose pressors. PHYSICAL EXAMINATION: VITAL SIGNS: His blood pressure is 96 systolic, his pulse is 140, sinus tachycardia. LUNGS: Clear anteriorly and laterally. CARDIAC: Tachycardic. ABDOMEN: Soft and nontender. EXTREMITIES: Warm and dry. NEUROLOGIC: He is awake and alert and responds to verbal stimuli. ASSESSMENT: 1. Cardiogenic shock. 2. Severe sinus tachycardia. 3. Paroxysmal atrial fibrillation. 4. Previous stroke. PLAN: 1. Try to reduce epinephrine. 2. Use Levophed for blood pressure control. 3. Continue supportive care. Prognosis remains guarded.
[2018-02-16] MEDS ORDERED: Potassium Chloride 20 MEQ in Premix Bag 1 BAG IVPB SCH (10:45)
[2018-02-16] MEDS ORDERED: Enoxaparin Sodium 40 MG/0.4 ML SYRINGE SC SCH (12:15)
[2018-02-16] MEDS: Norepinephrine 8 MG/250 ML BAG IVPB PRN ×2 (13:00→21:42)
[2018-02-16] MEDS ORDERED: Enoxaparin Sodium 60 MG/0.6 ML SYRINGE SC SCH (13:45)
[2018-02-16] MEDS: EPINEPHrine 4 MG in Dextrose 5% in Water 250 ML IV SCH (14:09)
--- NOTE | 2018-02-16 14:09 | PRG ---
DATE OF SERVICE: 02/16/2018 SUBJECTIVE: Ramon Ingram is a 52-year-old gentleman, who is status post CVA, intubated on the vent. Pulse 148, blood pressure is 94/71, sats 100% . He is more responsive this morning. He is mov ing his right side, but not his left side. OBJECTIVE: VITAL SIGNS: His heart rate was 147, blood pressure was 94/71, sats 100%. CHEST: Decreased breath sounds without any wheezing. CARDIAC: Normal S1, S2. No gallops. ABDOMEN: Soft, no masses. LABORATORY DATA: White count 20,000, H and H 13 and 42, platelet count is normal. Sugar is elevated . IMPRESSION: 1. Status post cerebrovascular accident, status post TPA. 2. Apparently a stress-induced cardiomyopathy with decreased EF, respiratory failure, bilateral pleu ral effusion, myocardial infarction, pneumonia. PLAN: Minimize sedation. Labs have been ordered. Chest x-ray has been ordered. Vent being adjusted. Continue cardiac care. One-half hour critical care time.
[2018-02-16] MEDS: Amiodarone HCl 450 MG, Admixture Fee 1 EACH in Dextrose 5% in Water 250 ML IVPB SCH (14:10)
--- NOTE | 2018-02-16 14:14 | CT ---
CT BRAIN WITHOUT CONTRAST: Date: 02/16/18 HISTORY: CVA. Altered mental status and unresponsive status post TPA. FINDINGS: Comparison made with exam of 02/14/18. There is interval progression of the acute right MCA infarction since the previous study without hemo rrhagic transformation. Ventricular size is normal and the basilar cisterns are patent. No midline sh ift is seen. IMPRESSION: Acute right MCA infarction without evidence of hemorrhagic transformation since 02/14/18. Findings discussed over the telephone with Dr. Rubio at 1334 hours. This exam was interpreted in consultation with Dr. Yogi Molina (neuroradiologist), who concurs. Code CR. POS: [facility]
[2018-02-16] MEDS: cefTRIAXone\\ROCEPHIN 1 GM in Sodium Chloride 0.9% 100 ML IVPB SCH (14:15)
--- NOTE | 2018-02-16 14:19 | PRG ---
DATE OF SERVICE: 02/16/2018 His entire right leg is swollen and STAT ultrasound reveals extensive deep venous thrombosis al darren the entire right leg. A CT of his head done 3 days ago showed no hemorrhage but an infarct. I s poke with Neurology this afternoon, Chet Valdez, neurosurgeon, who has actually not seen the tito odom. We decided to get a stat CT of his head. If he has no evidence of any hemorrhage, we will st art him on Lovenox full dose. Otherwise, we will need a .
--- NOTE | 2018-02-16 14:21 | PRG ---
DATE OF SERVICE: 02/16/2018 CHIEF COMPLAINT: CVA. INTERVAL HISTORY: The patient has remained stable since yesterday. He is still unable to complete his CT head due to his cardiac status and he has been having tachycardia he has been hemodynamically unstable. LABORATORY DATA: From today, white count 22.5, hemoglobin was 13.9, platelets 199, hematocrit 42.7. Sodium 142, potassium 3.2, chloride 103, bicarbonate 24, BUN 28, creatinine 0.85, glucose 151. PHYSICAL EXAMINATION: VITAL SIGNS: Blood pressure 92/66, pulse 122 and respiratory rate is on ventilator. NEUROLOGIC: Higher intellectual functions. He is easily arousable, seems to follow commands. Normal cranial nerves: Normal extraocular movements. Difficult to assess facial asymmetry due to the presence of his ET tube. MOTOR: Right side strength is normal, but he still has mild weakness on the left side 3/5. IMPRESSION: Patient with acute right left middle cerebral artery cerebrovascular accident and is status post IV tPA. He has remained stable at this time, but from neurological standpoint, he has critical cardiac issues which are being monitored and so far he has hypotension and tachycardia. RECOMMENDATIONS: I will continue to follow clinically with you. No additional changes needed to his medications from a neuro standpoint. HUYEN
--- NOTE | 2018-02-16 14:24 | ULT ---
VENOUS DOPPLER ULTRASOUND OF THE RIGHT LOWER EXTREMITY: Date: 02/16/18 HISTORY: Right leg edema. TECHNIQUE: Dhaliwal scale ultrasound with color flow and spectral Doppler imaging of the deep venous systems of the right lower extremity performed. FINDINGS: There is absence of compression with minimal flow in the right common femoral, femoral, popliteal, an d posterior tibial veins due to intraluminal thrombosis. IMPRESSION: Deep venous thrombosis in the right lower extremity. Discussed over the telephone with Dr. Harshal Rubio at 1334 hours. CODE CR. POS: [facility]
--- NOTE | 2018-02-16 14:29 | PDOC.PN ---
- Subjective Encounter Start Date: 02/16/18 Encounter Start Time: 12:05 Intubated, sedated. - Objective Resuscitation Status: Resuscitation Status FULL:Full Resuscitation Vital Signs & Weight: Vital Signs (12 hours) Temp Pulse Resp 02/16/18 13:49 124 H 02/16/18 12:00 15 02/16/18 11:00 99.8 F H 02/16/18 10:59 126 H 02/16/18 10:00 15 02/16/18 08:00 99.5 F 15 02/16/18 06:29 137 H 02/16/18 06:00 15 02/16/18 04:00 100.3 F H 15 Weight Admit Weight 214 lb 11.6 oz Weight 214 lb 11.6 oz Most Recent Monitor Data Heart Rate from ECG 125 NIBP 87/64 NIBP BP-Mean 71 Respiration from ECG 14 SpO2 100 I&O: 02/15/18 02/16/18 02/17/18 06:59 06:59 06:59 Intake Total 957.0 2742 Output Total 1110 2735 320 Balance -153.0 7 -320 Result Diagrams: 02/16/18 04:56 02/16/18 04:56 Additional Labs: Accuchecks 02/16/18 02/16/18 02/16/18 13:32 12:29 11:43 POC Glucose 184 H 195 H 188 H 02/16/18 02/16/18 02/16/18 10:30 09:31 08:34 POC Glucose 171 H 146 H 135 H 02/16/18 02/16/18 02/16/18 06:23 04:46 03:10 POC Glucose 180 H 169 H 190 H 02/16/18 02/16/18 02/15/18 01:42 00:02 22:38 POC Glucose 190 H 196 H 216 H 02/15/18 02/15/18 02/15/18 21:18 20:18 19:05 POC Glucose 241 H 230 H 223 H 02/15/18 02/15/18 02/15/18 17:51 16:57 15:55 POC Glucose 259 H 320 H 380 H 02/15/18 14:51 POC Glucose 437 H Phys Exam - Physical Examination Constitutional: NAD Intubated, sedated. Respiratory: no wheezing, no rales, no rhonchi, clear to auscultation bilateral Cardiovascular: RRR, no significant murmur Tachycardic Gastrointestinal: soft, no distention RLE edema and mild mottling. sedated. Nursing reports he was awake. Has persistent LUE weakness Dx/Plan (1) Cardiogenic shock Code(s): R57.0 - CARDIOGENIC SHOCK Status: Acute Comment: Acute CM with CHF resulted in hypoxia and PEA arrest. Now on Epi and NorEpi. Trying to transition off of the Epi and use only Levophed to reduce the tachycardia. (2) Cardiomyopathy Code(s): I42.9 - CARDIOMYOPATHY, UNSPECIFIED Status: Acute Comment: Appears to be an acute CM. Etiology unclear, but possibly Takosubo. Cardiology following. No plan for cath until more stable. (3) Acute systolic (congestive) heart failure Code(s): I50.21 - ACUTE SYSTOLIC (CONGESTIVE) HEART FAILURE Status: Acute Comment: Acute CM with several days of SOB and ultimately flash pulmonary edema. Diuresing spontaneously now. (4) Acute respiratory failure with hypoxia Code(s): J96.01 - ACUTE RESPIRATORY FAILURE WITH HYPOXIA Status: Acute Comment: Initial thought of pneumonia has been ruled out. Now appears to be fully related to the pulmonary edema and CHF. On vent. Still having difficulty maintaining oxygenation. (5) Right middle cerebral artery stroke Code(s): I63.511 - CEREB INFRC D/T UNSP OCCLS OR STENOS OF RIGHT MID CEREB ART Status: Acute Comment: S/P tPA. Tolerated well. Residual LUE weakness and mild LLE weakness. Tried to avoid needle sticks/accuchecks, but that was ultimately abandoned given his critical status. Stroke team consulted, but too critically ill for any therapy. (6) Type 2 diabetes mellitus Status: Chronic Comment: Severe hyperglycemia intially. Improved now. Started on insulin gtt. Did not receive initial treatment due to the tPA and avoidance of sticks. (7) NSTEMI (non-ST elevated myocardial infarction) Code(s): I21.4 - NON-ST ELEVATION (NSTEMI) MYOCARDIAL INFARCTION Status: Acute Comment: Trops high on presentation with some mild lateral ST depression / TWI. Much higher after PEA arreast. Cards following. No plans for cath at this time. (8) Acute renal failure Status: Acute Comment: Numbers are better. Still making some urine. (9) Atrial fibrillation Code(s): I48.91 - UNSPECIFIED ATRIAL FIBRILLATION Status: Acute Comment: On Amio (10) DVT (deep venous thrombosis) Code(s): I82.409 - ACUTE EMBOLISM AND THOMBOS UNSP DEEP VN UNSP LOWER EXTREMITY Status: Acute Comment: Difficult situation. Had tPA and subsequent arrest. Pressor dependent. Did not initially receive anticoagulation due to tPA and acute CVA. Now has DVT in RLE, but also has bright red blood from the NGT. Pulmonology started PPI/anticoag. - Plan * Discussed the situation wit the patient's . Prognosis is still very poor overall, but renal function is a little better and his neuro status appears reasonably good for now.
[2018-02-16] MEDS ORDERED: Sodium Chloride 0.9% 250 ML 250 ML IV SCH (16:30)
[2018-02-16] MEDS: Azithromycin 500 MG in Sodium Chloride 0.9% 250 ML 250 ML IVPB SCH (16:31)
[2018-02-16] MEDS ORDERED: EPINEPHrine 1 MG/10 ML Abboject SYRINGE ONE (18:19)
[2018-02-16] MEDS ORDERED: Sodium Bicarb 50 MEQ/50 ML Abboject 8.4% SYRINGE ONE (18:19)
[2018-02-16] MEDS ORDERED: Artificial Tear Sol 15 ML BOT EA EYE PRN (20:54)
[2018-02-16] MEDS: Enoxaparin Sodium 100 MG/ML SYRINGE SC SCH (21:41)
[2018-02-16] MEDS: Pantoprazole 40 MG VIAL IVP SCH (21:41)
[2018-02-17] MEDS: Norepinephrine 8 MG/250 ML BAG IVPB PRN ×3 (05:05→17:29)
[2018-02-17 06:01] LABS: Band 6 % (5-11); Hemoglobin 14.1 g/dL (14.0-18.0); Lymphocytes 12 % (21-51); MDiff Complete? YES; Mean Corpuscular HGB CONC 32.5 g/dL (32.0-36.0); Mean Corpuscular Hemoglobin 29.6 pg (27.0-31.0); Mean Corpuscular Volume 91.3 fL (78.0-98.0); Mean Platelet Volume 9.2 fL (7.4-10.4); Monocytes 14 % (0-10); Neutrophil 68 % (42-75); PLT Morphology Comment Appears Decreased; Platelet Count 122 thou/uL (130-400); RBC Distribution Width 12.5 % (11.5-14.5); RBC Morphology Normal; Red Blood Cell (RBC) Count 4.74 mill/uL (4.70-6.10); White Blood Cell (WBC) Count 17.9 thou/uL (4.8-10.8)
[2018-02-17 06:47] LABS: ALT (SGPT) 1892 U/L (8-55); AST (SGOT) 745 U/L (5-34); Albumin 3.2 g/dL (3.5-5.0); Alkaline Phosphatase 85 U/L (40-150); Anion Gap 18 mmol/L (10-20); BUN (Urea Nitrogen) 36 mg/dL (8.4-25.7); Bilirubin, Total 1.3 mg/dL (0.2-1.2); Calc. Creatinine Clearance 112 mL/min (70-130); Calcium 7.8 mg/dL (7.8-10.44); Carbon Dioxide 23 mmol/L (22-29); Chloride 102 mmol/L (98-107); Estimated GFR-MDRD 74; Globulin 2.3 g/dL (2.4-3.5); Glucose 148 mg/dL (70-105); Magnesium 2.4 mg/dL (1.6-2.6); Potassium 4.3 mmol/L (3.5-5.1); Protein, Total 5.5 g/dL (6.0-8.3); Sodium 139 mmol/L (136-145)
[2018-02-17 06:48] LABS: Phosphorus 2.6 mg/dL (2.3-4.7)
[2018-02-17] MEDS: EPINEPHrine 4 MG in Dextrose 5% in Water 250 ML IV SCH (07:25)
[2018-02-17] MEDS: Amiodarone HCl 450 MG, Admixture Fee 1 EACH in Dextrose 5% in Water 250 ML IVPB SCH (07:25)
[2018-02-17] MEDS ORDERED: Digoxin 0.5 MG/2 ML AMP SLOW IVP SCH ×3 (07:45→12:00)
[2018-02-17] MEDS: Furosemide 20 MG/2 ML VIAL SLOW IVP SCH (07:52)
[2018-02-17] MEDS: Sodium Bicarbonate 150 MEQ in Dextrose 5% in Water 1,000 ML IV SCH (08:02)
[2018-02-17] MEDS ORDERED: Digoxin 0.5 MG/2 ML AMP ONE (08:04)
[2018-02-17] MEDS: Pantoprazole 40 MG VIAL IVP SCH (08:06)
[2018-02-17] MEDS: Enoxaparin Sodium 100 MG/ML SYRINGE SC SCH (08:06)
[2018-02-17 08:56] LABS: Actual Bicarbonate (HCO3a) 25.9 mEq/L (22-28); Base Excess (BEa) 2.6 mEq/L (-2.0 to +3.0); Calcium, Ionized 1.03 mmol/L (1.12-1.30); Carboxyhemoglobin (COHb) 1.2 gm% (0.0-3.0); Hemoglobin (Hb) 14.6 g/dL (14.0-18.0); Potassium - ABG Lab 3.86 mmol/L (3.70-5.30); pH, Arterial 7.48 (7.35-7.45)
[2018-02-17 08:58] LABS: O2 Tension (PaO2) 58.8 mmHg (80.0-100.0); Puncture Site LRA
[2018-02-17] MEDS ORDERED: Sodium Chloride 0.9% 1,000 ML IV SCH (09:45)
[2018-02-17] MEDS: fentaNYL Citrate/PF 2,000 MCG in Sodium Chloride 0.9% 60 ML IV SCH (10:14)
--- NOTE | 2018-02-17 10:47 | RAD ---
PORTABLE CHEST 1 VIEW: Date: 02/17/18 Time: 0402 hours HISTORY: Respiratory failure. FINDINGS/IMPRESSION: No significant interval change is seen since the previous day's exam. POS: [facility]
--- NOTE | 2018-02-17 12:50 | PRG ---
DATE OF SERVICE: 02/17/2018 Mr. Ingram remains on high dose pressors. He is on high dose epinephrine as well as Levophed. OBJECTIVE: VITAL SIGNS: His heart rate is varying between 120-130, which is sinus since; and 150-160, which see ms to be some type of SVT. His blood pressure is 103/78. He remains on intravenous amiodarone. LUNGS: Clear. CARDIAC: Very tachycardic. ABDOMEN: Soft and nontender. EXTREMITIES: No edema. ASSESSMENT: 1. Status post stroke. 2. Takotsubo cardiomyopathy with severe tachycardia. PLAN: 1. We will reduce epinephrine to 3 mcg per minute. 2. One single dose of digoxin to try to prevent the supraventricular tachycardia. 3. Cannot use Cardizem or beta blockers due to hypotension. Prognosis remains guarded.
--- NOTE | 2018-02-17 12:55 | PRG ---
DATE OF SERVICE: 02/17/2018 SUBJECTIVE: A 52-year-old gentleman, intubated on the vent. He is awake and responsive; in fact, he is moving both his lower extremities. His right leg . He has got a central line in his right groin; it needs to be removed. His x-ray shows bilateral pleural effusion, CHF. Cardiology is on board. OBJECTIVE: VITAL SIGNS: He has a pulse of 138. His blood pressure is 80/60, sats are 88-90, respirations 20. His I's and O's have been 3328 in and 110 out. CHEST: Decreased breath sounds, bilateral rhonchi, crackles. CARDIAC: Sinus tachycardia. ABDOMEN: Soft, without any masses. LABORATORY DATA: White count is 17,000, H and H is , platelet count is 122. He has 68 segs, 6 bands, 12 lymphocytes. Creatinine is normal. BUN is 36, glucose 135. His ALT is 1892 and AST is 34 5. IMPRESSION: 1. Status post TPA for right middle cerebral artery infarct. 2. Extensive right leg deep vein thrombosis. 3. Congestive cardiomyopathy, EF of 20%. 4. Respiratory failure. 5. Diabetes. PLAN: He is not weanable. Added nutrition today. Continue antibiotics, neb treatment, pressors. Nutrition was initiated. Lovenox. [id number]-kquo critical care time.
--- NOTE | 2018-02-17 12:58 | PDOC.PN ---
- Subjective Encounter Start Date: 02/17/18 Encounter Start Time: 08:30 Intubated, but awake and writing notes. Denies complaints other than frequently wanting mouth swabs. - Objective Resuscitation Status: Resuscitation Status FULL:Full Resuscitation Vital Signs & Weight: Vital Signs (12 hours) Temp Pulse Resp Pulse Ox 02/17/18 12:50 129 H 02/17/18 12:48 129 H 02/17/18 12:00 99.3 F 21 H 02/17/18 10:19 129 H 02/17/18 10:00 21 H 02/17/18 08:21 137 H 02/17/18 08:14 137 H 02/17/18 08:00 100.6 F H 18 92 L 02/17/18 06:51 161 H 02/17/18 06:00 15 02/17/18 04:00 99.6 F 15 02/17/18 02:00 15 02/17/18 01:00 99.8 F H Weight Admit Weight 214 lb 11.6 oz Weight 214 lb 11.6 oz Most Recent Monitor Data Heart Rate from ECG 127 NIBP 93/69 NIBP BP-Mean 77 Respiration from ECG 21 SpO2 98 I&O: 02/16/18 02/17/18 02/18/18 06:59 06:59 06:59 Intake Total 2742 3328.0 114 Output Total 2735 1110 127 Balance 7 2218.0 -13 Result Diagrams: 02/17/18 05:13 02/17/18 06:00 Additional Labs: Accuchecks 02/17/18 02/17/18 02/17/18 10:57 09:19 07:28 POC Glucose 110 123 H 132 H 02/17/18 02/17/18 02/17/18 06:39 04:39 02:36 POC Glucose 135 H 177 H 158 H 02/17/18 02/17/18 02/16/18 01:35 00:16 22:57 POC Glucose 154 H 130 H 113 H 02/16/18 02/16/18 02/16/18 21:19 20:23 18:36 POC Glucose 138 H 155 H 150 H 02/16/18 02/16/18 02/16/18 17:33 16:30 15:31 POC Glucose 155 H 169 H 198 H 11/17/18 11/17/18 14:36 13:32 POC Glucose 196 H 184 H Radiology Reviewed by me: Yes Phys Exam - Physical Examination Constitutional: NAD Intubated, but awake and cognitively intact. Respiratory: no wheezing, no rhonchi Scattered mild rales. Cardiovascular: RRR, no significant murmur Tachy Gastrointestinal: soft, non-tender, no distention, positive bowel sounds RLE edema. No TTP. Weakness LUE. LLE with mildly decreased sensation, but good strength. Dx/Plan (1) Cardiogenic shock Code(s): R57.0 - CARDIOGENIC SHOCK Status: Acute Comment: Acute CM with CHF resulted in hypoxia and PEA arrest. Weaning pressors as tolerated. (2) Cardiomyopathy Code(s): I42.9 - CARDIOMYOPATHY, UNSPECIFIED Status: Acute Comment: Appears to be an acute CM. Etiology unclear, but possibly Takosubo. Cardiology following. No plan for cath until more stable. (3) Acute systolic (congestive) heart failure Code(s): I50.21 - ACUTE SYSTOLIC (CONGESTIVE) HEART FAILURE Status: Acute Comment: Acute CM with several days of SOB and ultimately flash pulmonary edema. Initially spontaneously diuresed. Waning now. (4) Acute respiratory failure with hypoxia Code(s): J96.01 - ACUTE RESPIRATORY FAILURE WITH HYPOXIA Status: Acute Comment: Initial thought of pneumonia has been ruled out. Now appears to be fully related to the pulmonary edema and CHF. On vent. Still having difficulty maintaining oxygenation. CXR still looks to have significant pulm edema. (5) Right middle cerebral artery stroke Code(s): I63.511 - CEREB INFRC D/T UNSP OCCLS OR STENOS OF RIGHT MID CEREB ART Status: Acute Comment: S/P tPA. Tolerated well. Residual LUE weakness and mild LLE weakness. Neuro following. (6) Type 2 diabetes mellitus Status: Chronic Comment: Severe hyperglycemia intially. Improved now. Started on insulin gtt. Did not receive initial treatment due to the tPA and avoidance of sticks. (7) NSTEMI (non-ST elevated myocardial infarction) Code(s): I21.4 - NON-ST ELEVATION (NSTEMI) MYOCARDIAL INFARCTION Status: Acute Comment: Trops high on presentation with some mild lateral ST depression / TWI. Much higher after PEA arreast. Cards following. (8) Acute renal failure Status: Acute Comment: Numbers are better. Still making some urine, but volume has fallen off. Seems to be dependent on BP. (9) Atrial fibrillation Code(s): I48.91 - UNSPECIFIED ATRIAL FIBRILLATION Status: Acute Comment: On Amio. Still tachycardic this morning. Had a dose of dig. (10) DVT (deep venous thrombosis) Code(s): I82.409 - ACUTE EMBOLISM AND THOMBOS UNSP DEEP VN UNSP LOWER EXTREMITY Status: Acute Comment: Difficult situation. Had tPA and subsequent arrest. Pressor dependent. Did not initially receive anticoagulation due to tPA and acute CVA. CT ruled out bleed so anticoag started. - Plan * Continue vent support, ICU care. * Still very critical. * Discussed with patient's family.
[2018-02-17] MEDS ORDERED: Furosemide 20 MG/2 ML VIAL SLOW IVP SCH (14:00)
--- NOTE | 2018-02-17 16:26 | PRG ---
DATE OF SERVICE: 02/17/2018 CHIEF COMPLAINT: CVA. INTERVAL HISTORY: The patient has completed his CT of the head yesterday which did not show any sign ificant changes and no bleeding was reported at this time. The patient remained stable, but he has n ow developed a clot in his leg, which will need further procedures as well and he still remains hemod ynamically somewhat compromised. He is in cardiogenic shock and has heart failure with an EF of 20%. LABORATORY DATA AND IMAGING DATA: White count 17.9, hemoglobin 14.1, hematocrit 43.3 and platelets 1 22. Chemistry; sodium 139, potassium 4.3, chloride 102, bicarbonate 23, BUN 36, creatinine 1.05, ALT 1892, AST 745, and total bilirubin. CT of the head is negative for any intracerebral bleeding. No significant changes. Shows right MCA infarct without evidence of any hemorrhagic transformation. Hi s vascular ultrasound shows deep vein thrombosis in the right lower extremity. PHYSICAL EXAMINATION: VITAL SIGNS: He was afebrile, temperature was 99.3, blood pressure 104/75, pulse 129 and he is still intubated. NEUROLOGIC: Higher intellectual functions. He writes notes and he had a question stating he would l andres to drink and his mouth is dry. He is able to follow all commands and communicate. Cranial nerve s: Extraocular movements are normal. Facial asymmetry on the left side and motor examination, weakn ess on the left side, unchanged at 3/5. IMPRESSION: Patient is a 52-year-old gentleman with cardiomyopathy, congestive heart failure, EF of 20%. At this time, he is having more complications with his medical situation, particularly with rig ht leg DVT and edema. Neurologically, he remained stable. There is no hemorrhagic conversion. RECOMMENDATIONS: Please continue present course of management. Please call Neurology as needed for any additional issues.
[2018-02-17 16:35] VITALS: TEMP 99.6
[2018-02-17] MEDS ORDERED: Insulin Regular 300 UNITS/3 ML VIAL SC PRN (16:47)
[2018-02-17] MEDS ORDERED: Dextrose 5% in Water 1,000 ML IV PRN (16:47)
[2018-02-17] MEDS ORDERED: Dextrose 50% Abboject 50 ML SYRINGE IVP PRN (16:47)
[2018-02-17] MEDS: cefTRIAXone\\ROCEPHIN 1 GM in Sodium Chloride 0.9% 100 ML IVPB SCH (16:48)
[2018-02-17] MEDS ORDERED: DOBUTamine 500 mg/250 ml 500 MG in Premix Bag 1 BAG IVPB SCH (17:15)
[2018-02-17] MEDS ORDERED: Sodium Chloride 0.9% 100 ML IVPB SCH (17:15)
[2018-02-17] MEDS ORDERED: Hydrocortisone Sod Succ/PF 100 mg/2 ml Vial ONE (18:22)
[2018-02-17 18:41] LABS: Base Excess (BEa) -13.1 mEq/L (-2.0 to +3.0); CO2 Tension 30.9 mmHg (35.0-45.0); Calcium, Ionized 1.13 mmol/L (1.12-1.30); Carboxyhemoglobin (COHb) 0.8 gm% (0.0-3.0); Hemoglobin (Hb) 13.3 g/dL (14.0-18.0); O2 Tension (PaO2) 61.8 mmHg (80.0-100.0); Potassium - ABG Lab 5.69 mmol/L (3.70-5.30)
[2018-02-17 18:57] LABS: pH, Arterial 7.24 (7.35-7.45)
[2018-02-17 18:58] LABS: ALV-art Gradient 612.575 (0-20); Puncture Site ALINE
[2018-02-17 19:26] LABS: Anion Gap 32 mmol/L (10-20); BUN (Urea Nitrogen) 45 mg/dL (8.4-25.7); Calc. Creatinine Clearance 58 mL/min (70-130); Calcium 8.7 mg/dL (7.8-10.44); Carbon Dioxide 11 mmol/L (22-29); Chloride 104 mmol/L (98-107); Estimated GFR-MDRD 35; Glucose 128 mg/dL (70-105); Potassium 5.8 mmol/L (3.5-5.1); Sodium 141 mmol/L (136-145)
[2018-02-17 19:27] LABS: Actual Bicarbonate (HCO3a) 10.9 mEq/L (22-28); Base Excess (BEa) -13.9 mEq/L (-2.0 to +3.0); Calcium, Ionized 0.99 mmol/L (1.12-1.30); Carboxyhemoglobin (COHb) 0.9 gm% (0.0-3.0); Hemoglobin (Hb) 13.4 g/dL (14.0-18.0); O2 Tension (PaO2) 70.9 mmHg (80.0-100.0); Potassium - ABG Lab 5.39 mmol/L (3.70-5.30); pH, Arterial 7.28 (7.35-7.45)
[2018-02-17 19:28] LABS: CO2 Tension 23.7 mmHg (35.0-45.0); Puncture Site LINE
[2018-02-17 19:29] LABS: ALV-art Gradient 612.475 (0-20)
[2018-02-17] MEDS ORDERED: Sodium Bicarb 50 MEQ/50 ML Abboject 8.4% SYRINGE ONE ×3 (19:33→20:00)
[2018-02-17] MEDS ORDERED: Lorazepam 2 MG/ML VIAL ONE (19:53)
[2018-02-17] MEDS ORDERED: EPINEPHrine 1 MG/10 ML Abboject SYRINGE ONE (20:00)
[2018-02-17] MEDS ORDERED: Magnesium 5 GM/10 ML Abboject SYRINGE ONE (20:00)
[2018-02-17] MEDS ORDERED: Calcium Chloride 1 GM/10 ML Abboject SYRINGE ONE (20:00)
--- NOTE | 2018-02-18 01:58 | OP ---
PROCEDURE: Arterial line placement. INDICATIONS: 1. Cardiopulmonary arrest. 2. Frequent arterial blood gas monitoring. 3. Intra-arterial blood pressure monitoring. Consent was obtained emergently secondary to patient's altered mental status and clinical condition. DESCRIPTION OF PROCEDURE: Ms. Ingram was status post ROSC the ICU and was asked to place an arterial line for blood pressure monitoring and frequent arterial blood gas draw. Patient was evaluated and site of the left fem was selected secondary to ongoing recurrent CPR and unable to palpate radial or brachial pulses. The left femoral artery was palpated, it was thoroughly cleaned with chlorhexidine and allowed to dry. It was then cleaned a second time secondary to another round of CPR with Betadine prep. Sterile gloves were utilized and aseptic technique throughout the procedure. The left femoral artery was palpated and introducer needle 18-gauge was inserted into the artery, good right pulsatile blood flow was obtained. A guidewire was inserted through the introducer needle with easy success into the left femoral artery. The needle was then removed over the guidewire. A 5-Lao single lumen catheter was then inserted over the guidewire with ease into the left femoral artery. The guidewire was completely removed. Pressure was applied at the end of the catheter and a transducer cable connected and flushed with saline was connected. The saline was flushed during the connection, there was pulsatile blood flow and location was confirmed with good transduction and waveform monitoring. The area was cleaned with sterile 4 x 4s and sutured in place with two 3-0 nylon sutures. Area was covered with an occlusive dressing and all sharps were disposed. Estimated blood loss was 5 mL. Ms. Ingram tolerated the procedure well. HUYEN
--- NOTE | 2018-02-18 14:21 | ADD-PRG ---
DATE OF SERVICE: 02/17/2018 Mr. Ingram was found to have a deep venous thrombosis in the left side yesterday. He does have a cath eter in that side. He did receive full dose Lovenox this morning. It would appear reasonable to sta rt a new central line and take that line out. Since he just received a dose of Lovenox, it would be reasonable to potentially hold the dose of Lovenox and do that tomorrow since he is fully anticoagula liam now. The patient will receive intravenous digoxin, as I have mentioned. He does have DVT in the right side, but is fully anticoagulated. The right lower extremity is swollen and both feet are city wellness coordinator l, but I think he gets more vasoconstriction from the Levophed.
--- NOTE | 2018-02-19 08:59 | PRG ---
DATE OF SERVICE: 02/17/2018 The patient was seen in the morning and was awake. See note from 02/17/18. He remained tachycardic and was changed to Dobutamine by cardiology. Subsequently he remained stable for approximately 40 minutes. He then declined rapidly and and had abrupt changes in his mental status and breathing. A code was called when the patient lost his pulse. He was unresponsive, heart sounds were inaudbile and he was ventilator dependent for respirations. He received chest compressions, multiple rounds of code drugs per ACLS protocol. ABG results were called to Pulmonology/Critical Care physician. He received supplemental calcium and bicarbonate as well. He was ultimately maximized on epinephrine, Levophed, and vasopressin infusions. He did have ROSC and was awakened. He appeared to have appropriate cognitive function. The patient and the patient's family was made aware of the poor prognosis and the fact that the recovery was likely temporary. His was allowed in the room as soon as possible. She also had pastoral care with her. The patient was asked directly by his regarding his desires to continue with the fully aggressive measures and he indicated his desire to do so with a "thumbs up". The patient did decline again within 30-40 minutes and a second code was called. As the patient was maximized on pressor agents, he did receive some additional bolus doses of epinephrine and chest compressions. He did repeated recover a pulse and rhythm , but it was fleeting and each round produced a shorter recovery. He did continue to have some purposeful movements when he recovered a pulse. Again, the patient had repeated courses of bicarbonate infusion, calcium, magnesium, etc., while being bagged and chest compressions maintained. In spite of being maximized on code drug infusions and pressors and being appropriately bagged, we ultimately were unable to continue to maintain any meaningful circulatory function. Dr. Wheeler was present for the latter part of the code efforts. Finally, I did talk to the family and they agreed to allow us to give the patient some sedation with Ativan as he was having some recovery of mentation with chest compressions, but could not maintain a pressure without the compression. Patient was given 2 mg of Ativan and we continued to try to work on the patient. After the second code was worked for approximately one hour, the team present was surveyed to ensure we had not left any reasonable effort undone. It was agreed that all efforts had been exhausted and we had exceeded ACLS protocols in our efforts, but in spite of that, the patient could not maintain a rhythm or pulse more than a few seconds once compressions were discontinued. The patient's came back into the room as the code was called and all efforts discontinued. The patient promptly and was declared at 20:01 when no heart sounds were present, not rhythm detected on the monitor other than occasional PEA and no pulse could be palpated. See the code record for further details. Total critical care time was 90 minutes. MTDD
--- NOTE | 2018-02-19 10:37 | DIS ---
DATE OF ADMISSION: 02/14/2018 DATE OF DISCHARGE: 02/17/2018 DISCHARGE DIAGNOSES: 1. Severe cardiomyopathy with ejection fraction approximately 15% to 20%. 2. Right middle cerebral artery branch, cerebrovascular accident with left- sided weakness, status post TPA. 3. Severe pulmonary edema with acute respiratory failure. 4. Pulseless electrical activity arrest with successful resumption of spontaneous circulation. 5. Cardiogenic shock. 6. Elevated liver enzymes. 7. Oliguria. 8. Extensive right lower extremity deep venous thrombosis. 9. Atrial fibrillation with rapid ventricular response. 10. Diabetes. 11. Severe hyperglycemia. HISTORY: This patient is a 52-year-old male who presented via the emergency department. The patient reported that he had had a cough for about 4 days prior. He had presented to his PCP with cough and shortness of breath the day before admission. At that time, the patient was felt to have pneumonia, given his symptoms and some abnormal exam findings apparently. He was given amoxicillin and prednisone. The patient reported that he has gotten worse through the night and the next morning was having some cramping in his legs. When he tried to get up he fell, he fell again and realized that he had something wrong with him and he came to the emergency department. There, he was primarily reporting that he was having difficulty breathing and cough, and passively mentioned that he was having left-sided weakness as well. A CT scan of the brain revealed acute infarct in the right MCA distribution. A CTA was obtained, which revealed evidence of occlusion of the insular branch of right M2 cerebral artery. Neurosurgery was consulted regarding the patient. There did not appear to be an opportunity for mechanical intervention. Subsequently, TPA was administered. On my exam the patient appeared to have significant respiratory distress and after a very brief time , the patient became more anxious and agitated, likely due to the hypoxia. He was subsequently intubated with the ER physician while I was in attendance. Dr. Valdes arrived at that time as well. A repeat chest x-ray revealed extensive pulmonary edema. With that, there was concern for possible cardiomyopathy and ultrasound was performed at the bedside confirming severe hypokinesis of the left ventricle and a stat echocardiogram was obtained. That echocardiogram revealed an ejection fraction of approximately 20%. There was akinesis of all four mid and apical segments consistent with possible Takotsubo cardiomyopathy or a large anterior AL. There is also moderate to severe MR and some ascites noted. The patient had consultations with Cardiology. Soon after the patient arrived to the ICU, he had PEA arrest and was ultimately successfully resuscitated. He was on epinephrine and norepinephrine drips. He had persistent tachycardia from the time of the initial exam in the 140s. He appeared to have some AFib at times with rapid ventricular response and ultimately was started on an amiodarone drip. He had severe hyperglycemia consistent with his prior history of type 2 diabetes and was placed on an insulin drip initially. The patient tolerated the ventilator well, did not require a significant amount of sedation and was able to interact quite well. He had good initial diuresis after the pressors were started, but subsequently his urine output started to follow up significantly. Followup labs revealed significant elevation of his liver enzymes and his troponin went up to 25. The patient did well throughout that day. However, the following morning, was noted to have significant edema of the right lower extremity. Doppler revealed extensive DVT. Given his prior administration of TPA, a repeat head CT was obtained at that time. It did not reveal any intracranial hemorrhage and the patient was subsequently started on therapeutic doses of Lovenox. The following morning, the patient remained tachycardic and oliguric. His blood sugars had been stabilized. He was again seen by Cardiology and attempts were made to wean the epinephrine because of the tachycardia and consider dobutamine. At about 45 minutes subsequent to this change, the patient had an acute change in his mental status and respiratory pattern and subsequently lost blood pressure and pulse. A code was called, and the patient was treated with CPR and ACLS protocols with code drugs , bicarbonate, calcium given and ultimately maximization on vasopressin, epinephrine, and Levophed infusion. Patient was able to recover blood pressure and pulse. However, it was felt that this was likely tenuous. His family did gather with him and were able to interact with him for a period of time and he was cognizant enough to interact. They did choose to continue to pursue aggressive interventions. Unfortunately, within about 30 minutes, the patient again lost his pulse and blood pressure and a code was re-initiated. The patient had multiple rounds of chest compressions and code drugs given only ultimately to diminishing success and ultimately the code was called at 8:01 p.m. The patient's family was all gathered there and were able to be at his bedside. HUYEN
--- NOTE | 2018-02-20 08:15 | EKG ---
Test Reason : Blood Pressure : / mmHG Vent. Rate : 126 BPM Atrial Rate : 136 BPM P-R Int : 000 ms QRS Dur : 104 ms QT Int : 304 ms P-R-T Axes : 000 090 162 degrees QTc Int : 440 ms Atrial fibrillation with rapid ventricular response Rightward axis Low voltage QRS Nonspecific ST and T wave abnormality , probably digitalis effect Abnormal ECG When compared with ECG of 14-FEB-2018 17:12, (Unconfirmed) Atrial fibrillation has replaced Sinus rhythm Nonspecific T wave abnormality now evident in Inferior leads Confirmed by DR. Lazaro BETHEA ([id number]) on 02/20/2018 8:14:59 AM Referred By: JANELLE Confirmed By:DR. Lazaro BETHEA
--- NOTE | 2018-02-20 08:17 | EKG ---
Test Reason : Blood Pressure : / mmHG Vent. Rate : 165 BPM Atrial Rate : 043 BPM P-R Int : 000 ms QRS Dur : 106 ms QT Int : 308 ms P-R-T Axes : 000 080 -87 degrees QTc Int : 510 ms Supraventricular tachycardia Low voltage QRS Septal infarct , age undetermined Abnormal ECG When compared with ECG of 15-FEB-2018 14:05, (Unconfirmed) Sinus rhythm has replaced Atrial fibrillation Septal infarct is now Present Inverted T waves have replaced nonspecific T wave abnormality in Inferior leads Confirmed by DR. Lazaro BETHEA ([id number]) on 02/20/2018 8:16:35 AM Referred By: JANELLE Confirmed By:DR. Lazaro BETHEA
--- NOTE | 2018-02-25 10:57 | PQF ---
[employer] Deputy Or Calendar Clerk Crystal Reports Winform ViewerLUIS ALMANZAR DAVID R MD [id number] CLINICAL DOCUMENTATION CLARIFICATION FORM: POST DISCHARGE Addendum to original discharge summary date: 02/19/2018 Late entry note date: 02/26/2018 Please exercise your independent, professional judgment in responding to the clarification form. Clinical indicators are provided on the bottom of this form for your review Diagnosis: NSTEMI Present on Admission (POA): [ ] Yes [ x ] No [ ] Unable to determine Coding guidelines require hospitals to identify whether a diagnosis was present on admission (POA) or not. To accurately assign the appropriate POA indicator, this information must be clearly documented within the medical record. CLINICAL INDICATORS - SIGNS / SYMPTOMS / LABS TROPONIN ELEVATED OVER 4- 02/14 CARDIOGENIC SHOCK, HIGH POSSIBILITY OF THIS BEING TAKOTSUBO CARDIOMYOPATHY FROM HIS ACUTE CVA AND CARDIOGENIC SHOCK- 02/14 NSTEMI- TROPS HIGH ON PRESENTATION W/ SOME MILD LATER ST DEPRESSION W/ TWI. MUCH HIGHER AFTER PEA ARREST.- 02/15 RISK FACTORS: CARDIOGENIC SHOCK TAKOTSUBO SYNDROME CARDIAC ARREST TREATMENT: CPR CARDIOLOGY CONSULT VASOPRESSOR ADMINISTRATION [employer] Courtroom Deputy Or Calendar Clerk Crystal Reports Winform Viewer (This form is maintained as a part of the permanent medical record) 2014 [employer]. All Rights Reserved Sri [email or web address] [phone] HUYEN
== END 2018-02-17 20:01 | disposition expired | DRG 61 ==
LOC: ERS 12:40 → CCU 14:20
PROVIDERS: ADMIT Neurological Surgery; ATTEND Neurological Surgery
PROC: 3E03317 Introduction of Other Thrombolytic into Peripheral Vein, Percutaneous Approach (ICD-10-PCS; principal; 2018-02-14)
PROC: 5A1945Z Respiratory Ventilation, 24-96 Consecutive Hours (ICD-10-PCS; 2018-02-14)
PROC: 0BH17EZ Insertion of Endotracheal Airway into Trachea, Via Natural or Artificial Opening (ICD-10-PCS; 2018-02-14)
PROC: 5A12012 Performance of Cardiac Output, Single, Manual (ICD-10-PCS; 2018-02-14)
PROC: 3E033XZ Introduction of Vasopressor into Peripheral Vein, Percutaneous Approach (ICD-10-PCS; 2018-02-14)
PROC: 04HY32Z Insertion of Monitoring Device into Lower Artery, Percutaneous Approach (ICD-10-PCS; 2018-02-17)
PROC: 3E0336Z Introduction of Nutritional Substance into Peripheral Vein, Percutaneous Approach (ICD-10-PCS; 2018-02-17)
DX: I63.511 Cerebral infarction due to unspecified occlusion or stenosis of right middle cerebral artery (principal); J96.01 Acute respiratory failure with hypoxia; I50.23 Acute on chronic systolic (congestive) heart failure; J81.0 Acute pulmonary edema; I21.4 Non-ST elevation (NSTEMI) myocardial infarction; J18.9 Pneumonia, unspecified organism; E87.1 Hypo-osmolality and hyponatremia; E87.2 Acidosis; N17.9 Acute kidney failure, unspecified; G81.94 Hemiplegia, unspecified affecting left nondominant side; I82.409 Acute embolism and thrombosis of unspecified deep veins of unspecified lower extremity; I51.81 Takotsubo syndrome; R57.0 Cardiogenic shock; R00.0 Tachycardia, unspecified; E11.65 Type 2 diabetes mellitus with hyperglycemia; R47.81 Slurred speech; R34 Anuria and oliguria; I34.0 Nonrheumatic mitral (valve) insufficiency; I48.0 Paroxysmal atrial fibrillation; Z87.891 Personal history of nicotine dependence; Z80.9 Family history of malignant neoplasm, unspecified
CPT/HCPCS: 31500; 36415; 36416; 51702; 70450; 70496; 70498; 71045; 80048; 80053; 80061; 81003; 82010; 82805; 83605; 83735; 83880; 84100; 84443; 84484; 85025; 85610; 85730; 87040; 87086; 87804; 93005; 93010; 93306; 94002; 94003; 94640; 94760; 96361; 96365; 96367; 96375; 96376; C9113; J0171; J0282; J0456; J0696; J1160; J1250; J1650; J1720; J1815; J1940; J2060; J2405; J2704; J2997; J3010; J3475; J3480; J7050; J7070; J7620